=== PATIENT | female | born 1990 | race Caucasian/White ===

== ENCOUNTER 2018-04-05 17:55 | Emergency (ER) | payer OTHER, SELFPAY ==
--- NOTE | 2018-04-05 13:01 | EKG12_ITS ---
Test Reason : CP Blood Pressure : / mmHG Vent. Rate : 071 BPM Atrial Rate : 071 BPM P-R Int : 146 ms QRS Dur : 082 ms QT Int : 362 ms P-R-T Axes : 064 022 020 degrees QTc Int : 393 ms Normal sinus rhythm Normal ECG Confirmed by RENATA IBARRA MD ([id number]), editor farm journal BRIELLE MENCHACA ([id number]) on 04/10/2018 5:36:32 PM Referred By: Confirmed By:RENATA IBARRA MD
--- NOTE | 2018-04-05 17:00 | RAD_ITS ---
STUDY: X-RAY CHEST REASON FOR EXAM: Female, 27 years old. Chest pain and palpitations TECHNIQUE: PA and lateral views of the chest. COMPARISON: None. FINDINGS: The lungs are clear and expanded. There is no demonstrated pleural abnormality. Normal size heart. Normal mediastinum and marko. Normal visualized pulmonary arteries. Normal visualized aortic arch and descending thoracic aorta. Normal visualized thoracic spine. Normal visualized ribs, clavicles, and shoulders. There is no demonstrated abnormality of the visualized soft tissue structures of the upper abdomen. RAD/Chest PA and Lateral IMPRESSION: Normal x-ray examination of the chest. Electronically Signed: Jorge Perdue DO at 17:13 EDT Tel , Service support ,
--- NOTE | 2018-04-05 17:55 | DT_ITS ---
This patient was seen during an EMR downtime April 01, 2018 - April 08, 2018. This patient may have a combination of paper and electronic documentation or all paper documentation. All documentation is viewable within the e-chart portion of [facility] for each patient visit.
--- NOTE | 2018-04-05 17:55 | CT_ITS ---
STUDY: CTA CHEST REASON FOR EXAM: Female, 27 years old. Elevated d-dimer. RADIATION DOSAGE (If Supplied By Facility): CTDIvol = ( 10.05 ) mGy, DLP = ( 388.67 ) mGycm TECHNIQUE: The examination was performed with the intravenous administration of 100 ml of Isovue 370 contrast material. Post-processing of the angiographic images was performed, with multiplanar reformation and 3D reconstruction. Individualized dose optimization techniques were used for this CT. COMPARISON: None. FINDINGS: Normal enhancement of the main pulmonary artery and right and left pulmonary arteries. Normal enhancement of the bilateral peripheral pulmonary arteries. There is no demonstrated pulmonary embolism. Normal thoracic aorta and visualized great vessels. There is no demonstrated aortic dissection. Normal heart and pericardium. Normal mediastinum. Normal hilar regions. Normal visualized trachea and bronchi. The lungs are well expanded. Normal pulmonary parenchyma. Normal pleura. Normal chest wall structures. Normal osseous structures. Normal visualized upper abdomen. CT/CTA Chest W/WO Contrast IMPRESSION: Normal CTA chest examination, without a demonstrated pulmonary embolism or arterial dissection. No evidence for acute chest disease. Electronically Signed: Nash Ruff MD at 18:39 EDT , Service support ,
[2018-04-08 10:40] LABS: Hematocrit 46.2 % (37-47); Hemoglobin 15.9 g/dl (12.0-15.0); Mean Corp Hgb Conc 34.4 g/gl (32-36); Mean Corpuscular Hgb 30.3 pg (27.0-32.0); Platelet Count 293 K/mm3 (150-450); RBC Distribution Width CV 12.4 % (11.6-14.6); RBC Distribution Width SD 39.9 fl (35.1-43.9); Red Blood Count 5.25 M/mm3 (4.2-5.4); White Blood Count 10.8 K/mm3 (4.4-11.0)
[2018-04-08 10:41] LABS: Absolute Lymphocyte Count 2.03 X10^3/ul (0.83-4.51); Absolute Neutrophil Count 7.2 X10^3/uL (2.0-7.7); Basophil# 0.04 X10^3/uL; Basophil% 0.4 % (0-1); Eosinophil# 0.53 X10^3/uL; Eosinophils% 4.9 % (0-5); Lymphocyte # 2.03 X10^3/ul (4.0); Lymphocyte % 21.3 % (19-41); Mean Platelet Vol. 10.3 fl (6.2-12.0); Monocyte# 0.71 X10^3/uL; Monocyte% 6.6 % (0-10); Neutrophil # 7.22 X10^3/uL (2.7-7.7); Neutrophil % 66.6 % (47-70); POSITIVE COUNT NO; POSITIVE DIFFERENTIAL NO; POSITIVE MORPHOLOGY NO
[2018-04-08 10:42] LABS: D-Dimer Quantitative (DVT/PE) 0.52 FEU/ug/m (0.27-0.49)
[2018-04-09 03:57] LABS: BUN 9 mg/dL (7-18); Calcium,Total 9.1 mg/dL (8.5-10.1); Creatinine, Serum 0.75 mg/dL (0.55-1.02); EST Glomerular Filtration Rate 97 mL/min (>60); Est Glom Filt Rate - Afr Amer 118 mL/min (>60); Glucose 76 mg/dL (74-106)
[2018-04-09 03:58] LABS: Anion Gap 8 (5-15); Chloride 104 mmol/L (98-107); Potassium 4.4 mmol/L (3.5-5.1); Sodium Level 137 mmol/L (136-145)
== END 2018-04-05 18:55 | disposition home or self-care (01) ==
LOC: ED 04-06 12:50
PROVIDERS: Emergency Provider Emergency Medicine
DX: R07.9 Chest pain, unspecified (principal); R00.2 Palpitations; F17.200 Nicotine dependence, unspecified, uncomplicated
CPT/HCPCS: 71046; 71275; 80048; 84484; 85025; 85379; 93005; 99284; Q9967; A4216

== ENCOUNTER 2022-05-08 11:31 | Emergency (ER) | payer BC, SELFPAY ==
[2022-05-08 11:32] VITALS: BP 156/99; PULSE 97; RESP 14; TEMP 36.6; O2SAT 96; BMI 37.2
--- NOTE | 2022-05-08 12:36 | EDS_ITS ---
HPI HPI - GI History of Present Illness Chief Complaint: Abd Pain Informant: patient Abdominal Pain/Flank Pain Onset: Days (4-5) Context: Gradual Onset Timing: Continuous Quality: Aching and Burning Location: Epigastric (And across entire upper abdomen, feels discomfort in her low back nonlateralizing) Current Severity: Moderate Maximum Severity: Moderate Worsened by: Nothing Relieved by: Food Nausea/Vomiting/Emesis GI Symptom: Positive for Nausea; Negative for Vomiting Diarrhea/Melena/Hematochezia GI Symptom: Positive for Melena (Intermittent); Negative for Diarrhea or Hematochezia Associated Symptoms Associated Symptoms: Negative for Dysuria, Frequency, Hematuria or Urgency Narrative Narrative: Patient states she has a longstanding history of acid reflux, and she gets this upper abdominal discomfort from time to time with it, and she is on omeprazole for all of this. She had a scope maybe 10 years ago or more and does not remember what it showed, nothing since. She does not follow with gastroenterology for any reason. In the past several days without any obvious etiology, the same discomfort, she thinks, has been more intense and more persistent. She states most of the time she had it for several days and it goes away on its own. [facility] Medical History Former smoker GERD (gastroesophageal reflux disease) Hypertension SVT (supraventricular tachycardia) Home Medications hydrochlorothiazide 12.5 mg capsule 1 cap PO DAILY 05/08/22 [History Last Taken Unknown] omeprazole 40 mg capsule,delayed release 40 mg PO BID #30 caps 05/08/22 [Rx Last Taken Unknown] sucralfate 1 gram tablet 1 g PO .qid #40 tabs 05/08/22 [Rx Last Taken Unknown] Allergy/AdvReac Type Severity Reaction Status Date / Time amoxicillin [Amoxicillin] Allergy Rash Verified 05/08/22 11:34 Surgical History History of History of tonsillectomy and adenoidectomy History of umbilical hernia repair Social History Smoking Status: Former smoker ROS ROS ED Constitutional Constitutional ED: Denies chills or fever(s) Eyes Eyes: Denies change in vision or diplopia ENT ENT ED: Denies rhinorrhea or sore throat Cardiovascular Cardiovascular: Denies chest pain or palpitations Respiratory/Chest Respiratory/Chest: Denies cough or dyspnea Gastrointestinal Gastrointestinal: Reports abdominal pain, melena and nausea; Denies diarrhea, hematochezia or vomiting Genitourinary Genitourinary ED: Denies dysuria or hematuria Musculoskeletal Musculoskeletal: Reports back pain; Denies neck pain Integumentary Denies abscess or rash Neurologic Neurologic: Denies headache(s), paresthesias or weakness Psychiatric Psychiatric: Denies anxiety or suicidal thoughts EXAM Physical Exam Const Vital Signs: 05/08/22 11:32 05/08/22 13:23 05/08/22 15:17 Temperature 97.8 F Temperature Source Temporal Pulse Rate 97 76 67 Respiratory Rate 14 15 15 Blood Pressure 156/99 H 147/84 H 126/81 H Blood Pressure Mean 118 105 96 Pulse Ox 96 98 Oxygen Delivery Method Room Air Room Air Room Air Positive well nourished and well developed General Appearance ED: well developed and NAD HEENT Reports moist mucous membranes normocephalic and atraumatic Eyes PERRL and EOMs intact bilaterally Neck full ROM and supple Resp normal respiratory effort and clear to auscultation bilaterally Cardio regular rate, regular rhythm and no murmurs GI non-distended GI Narrative: Tender across upper abdomen nonlateralizing. Negative Valencia's. Lower abdomen benign. No guarding or rebound tenderness. Auscultation: normoactive bowel sounds Palpation: soft Back/Spine no CVA tenderness General Back: other FROM Extremity normal to inspection General Extremety ED: Negative for edema, pulses abnormal or tenderness General Extremity: Negative for edema or pulses abnormal Neuro oriented x3, CN's II-XII intact bilaterally and no sensory deficits noted Sensorium / Orientation: awake and alert Motor Exam: strength 5/5 throughout Skin no rashes or lesions noted and no wounds MDM MDM MDM Narrative Medical decision making narrative: After GI cocktail, patient had complete resolution of her discomfort, although later it started to gradually return. She is comfortable and stable. Her work- up is negative here. She is not anemic, I do not think we need to do a Hemoccult right now, it is certainly possible she is having some occasional upper GI bleeding, in this case her symptoms are more consistent with a duodenal ulcer. I am going to prescribe her sucralfate and have her double her PPI for at least the next 5 days, and follow-up with GI she was given their information and she is comfortable with that plan. Lab Data Attestation: I reviewed the patient's lab results. Labs: Laboratory Results - last 24 hr 05/08/22 05/08/22 05/08/22 12:46 12:46 12:46 WBC 9.9 RBC 5.14 Hgb 14.4 Hct 43.3 MCV 84.2 MCH 28.0 MCHC 33.3 RDW Std Deviation 37.2 RDW Coeff of Jackie 12.2 Plt Count 310 MPV 9.5 Immature Gran % (Auto) 0.500 Neut % (Auto) 67.8 Lymph % (Auto) 22.9 [place] % (Auto) 5.9 Eos % (Auto) 2.4 Baso % (Auto) 0.5 Absolute Neuts (auto) 6.7 Absolute Lymphs (auto) 2.26 Nucleated RBC % 0 Sodium 137 Potassium 3.8 Chloride 102 Carbon Dioxide 29.0 Anion Gap 6 BUN 9 Creatinine 0.84 Estim Creat Clear Calc 78.80 Est GFR (MDRD) Af Amer 100 Est GFR (MDRD) Non-Af 83 BUN/Creatinine Ratio 10.8 Glucose 100 Calcium 9.4 Total Bilirubin 0.50 AST 18 ALT 32 Alkaline Phosphatase 87 Total Protein 7.5 Albumin 3.7 Globulin 3.8 Albumin/Globulin Ratio 1.0 Lipase 100 Serum , Qual NEGATIVE Discharge Plan Triage Chief Complaint: Abd Pain ED Provider: Lee Owusu Dx/Rx/DC Orders Clinical Impression: Acute upper abdominal pain, Chronic GERD Instructions: ED PEPTIC ULCER vs GASTRITIS Prescriptions: New sucralfate 1 gram tablet 1 g PO .qid Qty: 40 0RF Continued hydrochlorothiazide 12.5 mg capsule 1 cap PO DAILY Changed omeprazole 40 mg capsule,delayed release(DR/EC) 40 mg PO BID Qty: 30 0RF Rx Instructions: for next 5 days Primary Care Provider: Care Physician,No Primary Referrals: Salvador Arriaga, [STAFF PHYSICIAN] - Care Physician,No Primary [Primary Care Provider] - Disposition Disposition: Home, Self Care
[2022-05-08 12:55] LABS: Absolute Lymphocyte Count 2.26 X10^3/uL (0.83-4.51); Absolute Neutrophil Count 6.7 X10^3/uL (2.0-7.7); Basophil# 0.05 X10^3/uL; Basophil% 0.5 % (0-1); Eosinophil# 0.24 X10^3/uL; Eosinophils% 2.4 % (0-5); Hematocrit 43.3 % (37-47); Hemoglobin 14.4 g/dL (12.0-15.0); Lymphocyte # 2.26 X10^3/ul (0.83-4.51); Lymphocyte % 22.9 % (19-41); Mean Corp Hgb Conc 33.3 g/dL (32-36); Mean Corpuscular Volume 84.2 fL (81-99); Mean Platelet Vol. 9.5 fl (6.2-12.0); Monocyte# 0.58 X10^3/uL; Monocyte% 5.9 % (0-10); NRBC Flagged by Analyzer 0 % (0-5); Neutrophil % 67.8 % (47-70); Platelet Count 310 K/mm3 (150-450); RBC Distribution Width CV 12.2 % (11.6-14.6); RBC Distribution Width SD 37.2 fl (35.1-43.9); Red Blood Count 5.14 M/mm3 (4.2-5.4); White Blood Count 9.9 K/mm3 (4.4-11.0)
[2022-05-08 13:04] LABS: Internal QC Validated? YES +Cl - CLEAR BKGD; Pregnancy, Serum, hCG Quali. NEGATIVE Negative
[2022-05-08 13:12] LABS: AST(SGOT) 18 U/L (15-37); Alanine Aminotransfer ALT/SGPT 32 U/L (13-56); Albumin, Serum 3.7 g/dL (3.2-5.0); Alkaline Phosphatase 87 U/L (45-117); Anion Gap 6 (5-15); BUN 9 mg/dL (7-18); BUN/Creat Ratio 10.8 RATIO (10-20); Calcium,Total 9.4 mg/dL (8.5-10.1); Chloride 102 mmol/L (98-107); Creatinine, Serum 0.84 mg/dL (0.55-1.02); EST Glomerular Filtration Rate 83 mL/min (>60); Est Glom Filt Rate - Afr Amer 100 mL/min (>60); Globulin 3.8 g/dL (2.2-4.2); Glucose 100 mg/dL (74-106); Lipase 100 U/L (73-393); Potassium 3.8 mmol/L (3.5-5.1); Protein, Total 7.5 g/dL (6.4-8.2); Sodium Level 137 mmol/L (136-145)
[2022-05-08] MEDS: Mag Hydrox/Al Hydrox/Simeth 30 ML UDC PO (13:15)
[2022-05-08] MEDS: Dicyclomine 10 MG Capsule 20 MG PO (13:15)
[2022-05-08 13:23] VITALS: BP 147/84; PULSE 76; RESP 15
--- NOTE | 2022-05-08 13:38 | CM.ED ---
Social Work Note Reason for Referral: No PCP SW reviewed chart and No PCP listed for pt. SW in to speak with pt. Pt has guest present in room. Pt gave permission for this worker to speak to her in front of her guest. Pt states that she does have a PCP and states it is Dr. Hackett. Gema Vazquez SUBSTANCE ABUSE RN, ORDERLY
[2022-05-08 15:17] VITALS: BP 126/81; PULSE 67; RESP 15; O2SAT 98
== END 2022-05-08 15:42 | disposition home or self-care (01) ==
PROVIDERS: Emergency Provider Emergency Medicine; Visit Provider Emergency Medicine
DX: K21.9 Gastro-esophageal reflux disease without esophagitis (principal); I10 Essential (primary) hypertension; Z87.891 Personal history of nicotine dependence; Z79.899 Other long term (current) drug therapy
CPT/HCPCS: 80053; 83690; 84703; 85025; 99284

== ENCOUNTER 2022-08-31 06:41 | Day surgery (SDC) | payer BC, SELFPAY ==
[2022-08-31] VITALS (7 sets, daily range): BP systolic 119–127; BP diastolic 80–90; PULSE 62–86; RESP 16; TEMP 36.4; O2SAT 92–97; BMI 39.4
[2022-08-31] MEDS: Lactated Ringers 1,000 ML 15 ML IV (06:55)
[2022-08-31 07:09] LABS: Internal QC Validated? YES +Cl - CLEAR BKGD; Pregnancy, Urine Negative Negative
--- NOTE | 2022-08-31 07:45 | EGD_PTH ---
PATIENT: DARSHAN WOLF LOC: EN U#:[id number] AGE/SX: 32/F ROOM: RE08/31/[address]: Dr. Salvador Arriaga DO : 1990 BED: DIS: 08/31/2022 SPEC #: [id number] RECD: 08/31/22 10:08 STATUS: ROSALBA CAMARGO #: [id number] OLVIN: 08/31/22 07:[address]: Salvador Arriaga DEPT: SURGICAL PATHOLOGY RECD BY: Henny Guillory ENTERED: 08/31/22 11:03 SP TYPE: EGD BIOPSY OT DR: Artur Hackett MD Tissues: Esophagus, NOS Procedures: Special Stain Group I Surgery Specimen Level IV GMS Stain (control) HEADER OPERATION: EGD (MAC) with biopsies and dilation PRE-OP DIAGNOSIS: GERD, dysphagia TISSUE SUBMITTED: Random esophagus biopsy MICROSCOPIC DIAGNOSIS Esophagus, random biopsy: Fragments of benign squamous mucosa. No evidence of inflammation. AM:julienne 09/01/2022 MICROSCOPIC DESCRIPTION Slides are reviewed. GROSS DESCRIPTION Received in fixative is one container labeled with the patient's name and designated random esophagus. The specimen consists of multiple irregular fragments of light quintanilla soft tissue that in aggregate measure 2 x 1.5 x 0.1 cm. The specimen is totally submitted in one cassette. / AM:julienne 08/31/2022 TC:2 CPT: 03733
--- NOTE | 2022-08-31 07:55 | HP.PCM_ITS ---
History and Physical Date of Admission: 08/31/22 32 F who presents to the office today for f/u ED visit for upper abdominal pain. She was referred to ED from urgent care. She was treated with a GI cocktail, pain improved, hgb 14.4, was prescribed sucralfate and instructed to increase omeprazole 40 mg to BID dosing for 5 days. Less pain since ED, sucralfate helped. She didn't increase dose of omeprazole. Long hx of heartburn, remote hx of EGD, thinks she had esophagram years ago too. Most bothered by acid refluxing up to throat, and difficulty swallowing bread and meat which is relatively new. No nausea or vomiting. Alternates between constipation and diarrhea, less often constipation, tried treating with OTC but felt worse. No melena or hematochezia. 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 ROS Const Constitutional: Positive for fatigue and weight change; No fever(s), frequent falls or headache(s) ENT ENT: Positive for difficulty swallowing; No headache(s) Cardio Cardiology: No leg pain with exertion Gastro GI: Positive for bloating, change in bowel habits, constipation, diarrhea, heartburn and difficulty swallowing; No abdominal pain, Vomiting blood/hematemesis, Blood in stool, nausea/dyspepsia or vomiting Musc Musculoskeletal: No abnormal gait, joint pain, back pain, joint swelling, muscle cramps, muscle weakness, numbness, stiffness, tingling, Arthritis, sciatica, leg pain at night or leg pain with exertion Skin Skin: No dry skin, lesions, itchy eyes or rash Neuro Neurology: No abnormal gait, dizziness, frequent falls, headache(s), numbness, tingling, tremor(s), Increased tone in limbs, paralysis or seizures Psych Psychiatric: Positive for anxiety, No depression, No paranoia, No Behavioral Problems, No Compulsive Behavior, No hyperactivity, No inattentiveness, No obsessions/compulsions, Positive for Temper Tantrums and No suicidal ideation Endo Endocrine: Positive for fatigue and weight change Aller/Imm Allergy/Immunologic: No itchy eyes Melo/Lymp Hematologic/Lymphatic: No easy bleeding or easy bruising Exam Const General: cooperative, comfortable and no acute distress Nutritional Appearance: obese Orientation: alert, awake and oriented x3 HENMT Head: normal to inspection Eyes General: appearance normal, both eyes and all related structures Resp Effort & Inspection: normal respiratory effort GI Inspection: normal to inspection Palpation: soft, no masses and nontender Skin General: no jaundice Neuro Speech: speech normal Gait: normal gait Quality Reporting Tobacco Screening ([facility] 138) Smoking Status: Former smoker Assessment and Plan Assessment and Plan (1) GERD (gastroesophageal reflux disease): ?Status:?Acute ?Plan: 32 yr old female with GERD, dysphagia, recent upper abd pain better with sucralfate. DDx includes esophagitis, esophageal stricture, Carter's peptic ulcer disease. She will be scheduled for EGD. Rx for omeprazole 40 mg she will try increasing to BID dosing. f/u 2 wks after EGD. (2) Dysphagia: ?Status:?Acute ?Plan: as above ? ? ? Medications: Changed From omeprazole ?? for next 5 days 40 mg? PO BID 30 caps 0RF ? ? To omeprazole 40 mg? PO BID 180 caps 0RF ? ? I have examined the patient and the H&P has been reviewed. There are no clinical changes since date of exam.
--- NOTE | 2022-08-31 08:17 | OP.EGD_ITS ---
Patient Name: Kiersten Vinson Procedure Date: 08/31/2022 7:54 AM Date of : 1990 Age: 32 Procedure: Upper GI endoscopy Indications: Dysphagia Providers: Salvador Arriaga DO Medicines: Monitored Anesthesia Care Patient Profile: This is a 32 year old female. Refer to note in patient chart for documentation of history and physical. Patient has symptoms of chronic dysphagia and dysphagia with solids. Complications: No immediate complications. Procedure: Pre-Anesthesia Assessment: - Prior to the procedure, a History and Physical was performed, and patient medications and allergies were reviewed. The risks and benefits of the procedure and the sedation options and risks were discussed with the patient. All questions were answered and informed consent was obtained. Patient identification and proposed procedure were verified by the physician in the pre-procedure area. Mental Status Examination: alert and oriented. Airway Examination: normal oropharyngeal airway and neck mobility. Respiratory Examination: clear to auscultation. CV Examination: normal. Prophylactic Antibiotics: The patient does not require prophylactic antibiotics. Prior Anticoagulants: The patient has taken no previous anticoagulant or antiplatelet agents. After reviewing the risks and benefits, the patient was deemed in satisfactory condition to undergo the procedure. The anesthesia plan was to use monitored anesthesia care (MAC). Immediately prior to administration of medications, the patient was re-assessed for adequacy to receive sedatives. The heart rate, respiratory rate, oxygen saturations, blood pressure, adequacy of pulmonary ventilation, and response to care were monitored throughout the procedure. The physical status of the patient was re-assessed after the procedure. After obtaining informed consent, the endoscope was passed under direct vision. Throughout the procedure, the patient's blood pressure, pulse, and oxygen saturations were monitored continuously. The gastroscope was introduced through the mouth, and advanced to the second part of duodenum. The upper GI endoscopy was accomplished without difficulty. The patient tolerated the procedure well. Scope In: 8:05:50 AM Scope Out: 8:12:15 AM Total Procedure Duration Time 0 hours 6 minutes 25 seconds Findings: Mucosal changes including ringed esophagus were found in the lower third of the esophagus. Biopsies were obtained from the proximal and distal esophagus with cold forceps for histology of suspected eosinophilic esophagitis. Verification of patient identification for the specimen was done. Estimated blood loss was minimal. A moderate Schatzki ring was found in the lower third of the esophagus. A guidewire was placed and the scope was withdrawn. Dilation was performed with a Savary dilator with no resistance at 60 Fr. The dilation site was examined following endoscope reinsertion and showed complete resolution of luminal narrowing. Estimated blood loss was minimal. The entire examined stomach was normal. A small hiatal hernia was present. The second portion of the duodenum was normal. Biopsies were taken with a cold forceps for histology. Verification of patient identification for the specimen was done. Estimated blood loss was minimal. Impression: - Esophageal mucosal changes consistent with eosinophilic esophagitis. Biopsied. - Moderate Schatzki ring. Dilated. - Normal stomach. - Small hiatal hernia. - Normal second portion of the duodenum. Biopsied. Recommendation: - Discharge patient to home. - Resume previous diet. - Continue present medications. Procedure Code(s): --- Professional --- 42659, Esophagogastroduodenoscopy, flexible, transoral; with insertion of guide wire followed by passage of dilator(s) through esophagus over guide wire 79206, 59,51, Esophagogastroduodenoscopy, flexible, transoral; with biopsy, single or multiple CPT copyright 2017 [employer] [place] [employer]. All rights reserved. The codes documented in this report are preliminary and upon orthopedic coder review may be revised to meet current compliance requirements. Salvador Arriaga DO 08/31/2022 8:17:11 AM This report has been signed electronically. Number of Addenda: 0 Note Initiated On: 08/31/2022 7:54 AM
--- NOTE | 2022-08-31 08:17 | OP.CCLET_ITS ---
08/31/2022 Artur Hackett Md Re : Upper GI endoscopy procedure for Kiersten Vinson Dear [place] This procedure was performed on August. My impressions and recommendations are as follows: Impressions : - Esophageal mucosal changes consistent with eosinophilic esophagitis. Biopsied. - Moderate Schatzki ring. Dilated. - Normal stomach. - Small hiatal hernia. - Normal second portion of the duodenum. Biopsied. Recommendations : - Discharge patient to home. - Resume previous diet. - Continue present medications. My findings are described in the full procedure note, which is enclosed. If I can be of further assistance, please feel free to contact me at . Sincerely, Salvador Arriaga, 08/31/2022 8:17:11 AM This report has been signed electronically.
== END 2022-08-31 09:19 | disposition home or self-care (01) ==
LOC: EN 06:42 → AC 06:43
PROVIDERS: Anesthesiology; PCP Family Medicine; Referring Provider Family Medicine; Visit Provider Internal Medicine Gastroenterology
PROC: 0DJ08ZZ Inspection of Upper Intestinal Tract, Via Natural or Artificial Opening Endoscopic (ICD-10-PCS; CPT 43235; principal; 2022-08-31 07:40)
DX: K22.2 Esophageal obstruction (principal); R13.10 Dysphagia, unspecified; K44.9 Diaphragmatic hernia without obstruction or gangrene; K21.9 Gastro-esophageal reflux disease without esophagitis; I10 Essential (primary) hypertension; Z87.891 Personal history of nicotine dependence; Z79.899 Other long term (current) drug therapy
CPT/HCPCS: 43239; 43248; 81025; 88305; 88312; J7120; C1769; J2405

== ENCOUNTER 2023-01-02 00:49 | Emergency (ER) | payer BC, SELFPAY ==
[2023-01-02 00:50] VITALS: BP 141/89; PULSE 77; RESP 18; TEMP 36.8; O2SAT 99; BMI 41.1
--- NOTE | 2023-01-02 01:25 | EKG12_ITS ---
Test Reason : DYSRHYTHMIA Blood Pressure : / mmHG Vent. Rate : 071 BPM Atrial Rate : 071 BPM P-R Int : 154 ms QRS Dur : 094 ms QT Int : 366 ms P-R-T Axes : 016 004 008 degrees QTc Int : 397 ms Normal sinus rhythm Normal ECG Confirmed by TRAVIS RODRÍGUEZ, YANN ([id number]), legal editor GLADYS CARMONA ([id number]) on 01/03/2023 10:25:08 AM Referred By: ALEXANDRA Confirmed By:YANN ROBLES MD
--- NOTE | 2023-01-02 01:25 | RAD_ITS ---
EXAM: XR CHEST, 1 VIEW CLINICAL INDICATION: dyspnea dyspnea TECHNIQUE: Frontal view of the chest. This report was created using [employer]. report generation technology. COMPARISON: 04/05/2018. FINDINGS: LUNGS AND PLEURAL SPACES: Unremarkable. No consolidation or edema. No pneumothorax. No effusion. HEART: Unremarkable. Cardiac silhouette not enlarged. MEDIASTINUM: Central airways and mediastinal contour are unremarkable. BONES/JOINTS: Unremarkable. SOFT TISSUES: Unremarkable. RAD/Chest 1 View (Portable) IMPRESSION: No radiographic evidence of acute cardiopulmonary disease. Electronically Signed: Prabhu Carey MD at 2:21 EST Reading Location ID and State: [facility] / [place] , Service support ,
--- NOTE | 2023-01-02 01:26 | EX.ED.DYSGE1 ---
HPI History of Present Illness Chief Complaint: Palpitations Informant: patient Narrative Narrative: Patient woke up this morning gasping for air and pounding heart. This patient has a history of SVT. She had an ablation in May in [facility]. She has not had any known episodes since. This did not feel like her SVT. She then had a Holter monitor afterwards that showed some occasional tachycardic episodes but it sounds like they were sinus tachycardia from what she is describing. Her forestry aide had said they do not have to treat these but if they bother her they can try. Therefore, about 2 weeks ago they started her on metoprolol. When she started taking metoprolol she got episodes like she got last night. She would wake up gasping for air after falling asleep. They switch metoprolol to propanolol at 10 mg once a day. This seemed to do well for her. It was recently switched to twice a day because the patient still felt she had some symptoms during the day. Since switching to twice a day she is getting similar response. She actually feels pretty good now. But ever since starting meds she states that she seems to get winded more easily. She is not having pain now. She has no history of travel surgery immobilization or personal history of DVT or PE. She is adopted so she does not know family history. She is also had a lot of postnasal drip recently. She was recently on an antibiotic for this. But she has not been having fevers. She saw her physician sounds like earlier today and they switched her to a new medicine but she has not started. She is not really coughing with this. She is not having fevers or chills. Patient also admits that ever since she had SVT and ablation she gets very anxious because she is concerned about her heart rhythms. This is very understandable. Overall she is feeling much better at this time. [facility] Medical History Anxiety Cardiology follow-up encounter Former smoker GERD (gastroesophageal reflux disease) History of echocardiogram History of edema History of stress test Hypertension Migraine headache SVT (supraventricular tachycardia) Thyroid nodule Vitamin D deficiency Wears glasses Home Medications cetirizine 10 mg capsule (Zyrtec) 10 mg PO DAILY PRN Allergy Symptoms 06/27/22 [History Last Taken Unknown] omeprazole 40 mg capsule,delayed release 40 mg PO BID #180 caps 06/27/22 [Rx Last Taken Unknown] cholecalciferol (vitamin D3) 125 mcg (5,000 unit) tablet (Vitamin D3) 125 mcg PO DAILY 08/29/22 [History Last Taken Unknown] propranolol 10 mg tablet 10 mg PO BID 01/02/23 [History Last Taken Unknown] Allergy/AdvReac Type Severity Reaction Status Date / Time amoxicillin [Amoxicillin] Allergy Rash Verified 01/02/23 00:52 diltiazem [From Cardizem] AdvReac Shortness Verified 01/02/23 00:52 of breath Family History unable to obtain unable to obtain Surgical History H/O cardiac radiofrequency ablation History of History of tonsillectomy and adenoidectomy History of umbilical hernia repair Social History Smoking Status: Former smoker alcohol intake: current substance use type: does not use what type of physical activity do you participate in: walking and other ROS ROS ED Constitutional Constitutional ED: Denies chills, fever(s), subjective or sweats Eyes Eyes: Denies change in vision ENT ENT ED: Reports rhinorrhea and other Details: Postnasal drip ; Denies ear pain or sore throat Cardiovascular Cardiovascular: Reports palpitations; Denies chest pain Respiratory/Chest Respiratory/Chest: Reports dyspnea; Denies sputum Gastrointestinal Gastrointestinal: Denies nausea or vomiting Musculoskeletal Musculoskeletal: Denies myalgias Integumentary Denies rash Neurologic Neurologic: Denies headache(s) or paresthesias Psychiatric Psychiatric: Reports anxiety Endocrine Endocrinology: Denies polydipsia or polyuria Hematologic/Lymphatic Hematologic/Lymphatic: Denies easy bleeding or easy bruising Allergic/Immunologic Allergic/Immunologic ED: Denies urticaria EXAM Physical Exam Narrative Exam Narrative: Patient awake alert sitting in bed looks comfortable. In no acute distress nontoxic. HEENT shows relatively clear nasal passages no sign of facial tenderness or swelling. Voice is normal. Neck shows no JVD no stridor. Lungs are clear bilaterally. Breathing is easy unlabored and there is no pain with a deep breath. O2 saturation is 99% on room air showing no hypoxia. Heart is regular with a rate about 75. No ectopy on the monitor while I am in the room. Peripheral pulses are normal x4 Abdomen is soft nontender. shows no CVA or suprapubic tenderness Extremities show no edema cords asymmetry or distended veins. Const Vital Signs: 01/02/23 00:50 Temperature 98.2 F Temperature Source Oral Pulse Rate 77 Respiratory Rate 18 Blood Pressure 141/89 H Blood Pressure Mean 106 Pulse Ox 99 Oxygen Delivery Method Room Air MDM MDM MDM Narrative Medical decision making narrative: My independent interpretation of her single view chest x-ray shows minimal increased markings toward the right base. This could be some mild atelectasis. This does not appear to be pneumonia. But even if it is, she is just starting an antibiotic from her primary physician. I am pending final read by radiology. Patient's labs show minimal elevation of the white count. This may be due to her recent illness but is a nonspecific finding. Platelets and hemoglobin are normal. No sign of anemia. Electrolytes all look normal but she does have some mild dehydration. This should self correct with diet. Glucose is minimally up at 130 and this can be followed up and does not need acute treatment. Went to check the patient again. Her heart rate is still in the low 70s. She is asymptomatic. She had similar symptoms on metoprolol. She was going on propanolol until they increase the dose. I recommend she contact her forestry aide in the morning for further dosing opinions. All questions were answered I think the symptoms may be a bit of a side effect from beta-blockers which can certainly cause some of her symptoms. But she may also have a component of sleep apnea. I think she needs to follow-up to have both of these evaluated. It is reasonable to do a sleep study but I think we have to wait until her nasal drainage is better. Lab Data Attestation: I reviewed the patient's lab results. Labs: Laboratory Results - last 24 hr 01/02/23 01/02/23 01:34 01:34 WBC 14.5 H RBC 5.09 Hgb 14.1 Hct 42.1 MCV 82.7 MCH 27.7 MCHC 33.5 RDW Std Deviation 38.3 RDW Coeff of Jackie 12.7 Plt Count 343 MPV 9.9 Immature Gran % (Auto) 0.400 Neut % (Auto) 64.0 Lymph % (Auto) 24.7 Hickman % (Auto) 7.4 Eos % (Auto) 3.1 Baso % (Auto) 0.4 Absolute Neuts (auto) 9.2 H Absolute Lymphs (auto) 3.57 Nucleated RBC % 0 Sodium 136 Potassium 3.9 Chloride 104 Carbon Dioxide 25.0 Anion Gap 7 BUN 14 Creatinine 1.17 H Estim Creat Clear Calc 56.05 Est GFR (MDRD) Af Amer 68 Est GFR (MDRD) Non-Af 56 L BUN/Creatinine Ratio 12.0 Glucose 130 H Calcium 9.3 Troponin I High Sens 9 EKG Initial EKG: Comments: My independent interpretation of her EKG done for palpitations and dyspnea showing normal sinus rhythm with overall rate of 71. No ventricular ectopy. No supraventricular ectopy. KS interval, QRS duration and QTc are all normal. Discharge Plan Triage Chief Complaint: Palpitations ED Provider: Rory Webb Dx/Rx/DC Orders Clinical Impression: Heart palpitations, Dyspnea, paroxysmal nocturnal, Hx of supraventricular tachycardia Instructions: ED Palpitations, ED Sleep Apnea, Obstructive Prescriptions: No Action Zyrtec 10 mg capsule 10 mg PO DAILY PRN (Reason: Allergy Symptoms) omeprazole 40 mg capsule,delayed release(DR/EC) 40 mg PO BID Qty: 180 0RF cholecalciferol (vitamin D3) [Vitamin D3] 125 mcg (5,000 unit) Tablet 125 mcg PO DAILY propranolol 10 mg tablet 10 mg PO BID Primary Care Provider: Artur Hackett Referrals: Artur Hackett MD [Primary Care Provider] - 3-5 Days Activity Restrictions/Additional Instructions: Contact your forestry aide tomorrow to discuss dosing options of your propanolol Disposition Disposition: Home, Self Care
[2023-01-02 01:40] LABS: Absolute Lymphocyte Count 3.57 X10^3/uL (0.83-4.51); Absolute Neutrophil Count 9.2 X10^3/uL (2.0-7.7); Basophil# 0.06 X10^3/uL; Basophil% 0.4 % (0-1); Eosinophil# 0.45 X10^3/uL; Eosinophils% 3.1 % (0-5); Hematocrit 42.1 % (37-47); Hemoglobin 14.1 g/dL (12.0-15.0); Lymphocyte # 3.57 X10^3/ul (0.83-4.51); Lymphocyte % 24.7 % (19-41); Mean Corp Hgb Conc 33.5 g/dL (32-36); Mean Corpuscular Hgb 27.7 pg (27.0-32.0); Mean Corpuscular Volume 82.7 fL (81-99); Mean Platelet Vol. 9.9 fl (6.2-12.0); Monocyte# 1.07 X10^3/uL; Monocyte% 7.4 % (0-10); NRBC Flagged by Analyzer 0 % (0-5); Neutrophil # 9.24 X10^3/uL (2.7-7.7); Platelet Count 343 K/mm3 (150-450); RBC Distribution Width CV 12.7 % (11.6-14.6); RBC Distribution Width SD 38.3 fl (35.1-43.9); Red Blood Count 5.09 M/mm3 (4.2-5.4); White Blood Count 14.5 K/mm3 (4.4-11.0)
[2023-01-02 01:58] LABS: Anion Gap 7 (5-15); BUN 14 mg/dL (7-18); Calcium,Total 9.3 mg/dL (8.5-10.1); Chloride 104 mmol/L (98-107); Creatinine, Serum 1.17 mg/dL (0.55-1.02); EST Glomerular Filtration Rate 56 mL/min (>60); Est Glom Filt Rate - Afr Amer 68 mL/min (>60); Estimated Creatinine Clearance 56.05 ml/min; Glucose 130 mg/dL (74-106); Potassium 3.9 mmol/L (3.5-5.1); Sodium Level 136 mmol/L (136-145); Troponin-I HS 9 pg/mL (3.0-54.0)
[2023-01-02 02:27] VITALS: BP 113/72; PULSE 77; RESP 20
== END 2023-01-02 02:36 | disposition home or self-care (01) ==
PROVIDERS: Emergency Provider Emergency Medicine; PCP Family Medicine; Visit Provider Emergency Medicine
DX: R00.2 Palpitations (principal); E86.0 Dehydration; I10 Essential (primary) hypertension; F41.9 Anxiety disorder, unspecified; R06.00 Dyspnea, unspecified; Z87.891 Personal history of nicotine dependence; Z86.79 Personal history of other diseases of the circulatory system
CPT/HCPCS: 71045; 80048; 84484; 85025; 93005; 99284; A4216

== ENCOUNTER 2023-01-03 04:16 | Emergency (ER) | payer BC, SELFPAY ==
[2023-01-03 04:16] VITALS: BP 143/82; PULSE 65; RESP 16; TEMP 35.9; O2SAT 100; BMI 39.8
[2023-01-03 04:21] VITALS: O2SAT 100
[2023-01-03] MEDS: LORazepam 1 MG Tablet 2 MG PO (06:01)
--- NOTE | 2023-01-03 06:06 | EX.ED.DYSGE1 ---
HPI History of Present Illness Chief Complaint: Anxiety Narrative Narrative: Patient is a 32-year-old female with past medical history of paroxysmal supraventricular tachycardia that she underwent an ablation for about 8 months ago. She states that ever since she has had SVT she has experienced bouts of anxiety. She states that she has not sought treatment for this but feels like over the past few weeks her symptoms have spiked. She denies any homicidal or suicidal ideation and she denies any excessive stimulants or illicit drugs that could have exacerbated the matter. She states she is having difficulty sleeping secondary to the anxiety and therefore presents for evaluation [facility] Medical History Anxiety Cardiology follow-up encounter Former smoker GERD (gastroesophageal reflux disease) History of echocardiogram History of edema History of stress test Hypertension Migraine headache SVT (supraventricular tachycardia) Thyroid nodule Vitamin D deficiency Wears glasses Home Medications cetirizine 10 mg capsule (Zyrtec) 10 mg PO DAILY PRN Allergy Symptoms 06/27/22 [History Last Taken Unknown] omeprazole 40 mg capsule,delayed release 40 mg PO BID #180 caps 06/27/22 [Rx Last Taken Unknown] cholecalciferol (vitamin D3) 125 mcg (5,000 unit) tablet (Vitamin D3) 125 mcg PO DAILY 08/29/22 [History Last Taken Unknown] propranolol 10 mg tablet 10 mg PO BID 01/02/23 [History Last Taken Unknown] escitalopram oxalate 10 mg tablet (Lexapro) 10 mg PO DAILY 30 days #30 tabs 01/03/23 [Rx Last Taken Unknown] Allergy/AdvReac Type Severity Reaction Status Date / Time amoxicillin [Amoxicillin] Allergy Rash Verified 01/03/23 04:19 diltiazem [From Cardizem] AdvReac Shortness Verified 01/03/23 04:19 of breath Surgical History H/O cardiac radiofrequency ablation History of History of tonsillectomy and adenoidectomy History of umbilical hernia repair Social History Smoking Status: Former smoker alcohol intake: current substance use type: does not use what type of physical activity do you participate in: walking and other ROS ROS ED Constitutional Constitutional ED: Denies chills or fever(s) ENT ENT ED: Denies sore throat Cardiovascular Cardiovascular: Reports palpitations and racing heartbeat; Denies chest pain Respiratory/Chest Respiratory/Chest: Denies cough or dyspnea Gastrointestinal Gastrointestinal: Denies abdominal pain, diarrhea, nausea or vomiting Genitourinary Genitourinary ED: Denies dysuria Musculoskeletal Musculoskeletal: Denies myalgias Integumentary Denies rash Neurologic Neurologic: Denies headache(s) Psychiatric Psychiatric: Reports anxiety; Denies suicidal ideation or suicidal thoughts Hematologic/Lymphatic Hematologic/Lymphatic: Denies easy bleeding or easy bruising EXAM Physical Exam Const Vital Signs: 01/03/23 04:16 01/03/23 04:21 01/03/23 06:14 Temperature 96.6 F L Temperature Source Temporal Pulse Rate 65 84 Respiratory Rate 16 16 Respiratory Effort Normal Non-Labored Respiratory Depth Normal Respiratory Pattern Normal Blood Pressure 143/82 H Blood Pressure Mean 102 Pulse Ox 100 99 Oxygen Delivery Method Room Air Room Air Positive well nourished and well developed General Appearance ED: well developed HEENT Reports moist mucous membranes Eyes PERRL and EOMs intact bilaterally General Eye ED: Negative for pale conjunctiva Neck supple Neck Narrative: No nodule or goiter noted along the thyroid Resp normal respiratory effort and clear to auscultation bilaterally Cardio regular rate and regular rhythm Rate: other Other Details: Radial pulses are plus 2 out of 4 bilaterally are equal and symmetric Extremity normal to inspection Extremity Narrative: No asymmetric edema no pitting edema negative Homans' sign bilaterally Neuro oriented x3 and CN's II-XII intact bilaterally Sensorium / Orientation: alert Psych Psych Narrative: Patient has a nervous/anxious affect without homicidal or suicidal ideation Skin no rashes or lesions noted MDM MDM MDM Narrative Medical decision making narrative: Patient presented to the ER with stable vitals and report longstanding anxiety that has not been treated. She does not have homicidal or suicidal ideation and she does not show any changes that would suggest she is unable to care for herself and therefore there is no need for psychiatric work-up. She does have a history of paroxysmal SVT but at this time her heart is regular rate and rhythm and this goes against SVT so do not feel need for EKG or blood work. At this time patient will need acute treatment for her anxiety so she be given Ativan in the ER. However in order to help control this on an outpatient basis she will get started on Lexapro. As there is no report of homicidal or suicidal ideation and patient does not require an inpatient treatment there is no need for further work-up and patient can be discharged home with outpatient follow-up History & Record Review Discussion w/independent historian: Patient Discharge Plan Triage Chief Complaint: Anxiety ED Provider: Cuauhtemoc Powell Dx/Rx/DC Orders Clinical Impression: Anxiety, Hx of supraventricular tachycardia Instructions: Anxiety Disorders Tx, Anxiety Disorders Medicine Prescriptions: New escitalopram oxalate [Lexapro] 10 mg tablet 10 mg PO DAILY 30 Days Qty: 30 2RF Rx Instructions: After 7 days you may increase to 20 mg / 2 pills by mouth once daily if you feel you need improved anxiety control No Action Zyrtec 10 mg capsule 10 mg PO DAILY PRN (Reason: Allergy Symptoms) omeprazole 40 mg capsule,delayed release(DR/EC) 40 mg PO BID Qty: 180 0RF cholecalciferol (vitamin D3) [Vitamin D3] 125 mcg (5,000 unit) Tablet 125 mcg PO DAILY propranolol 10 mg tablet 10 mg PO BID Primary Care Provider: Artur Hackett Referrals: Artur Hackett MD [Primary Care Provider] - Activity Restrictions/Additional Instructions: Please take the Lexapro as directed to help control any anxiety symptoms and return to the ER should you have any further concerns Disposition Disposition: Home, Self Care Discharge Date/Time: 01/03/23 06:14
[2023-01-03 06:14] VITALS: PULSE 84; RESP 16; O2SAT 99
== END 2023-01-03 06:14 | disposition home or self-care (01) ==
PROVIDERS: Emergency Provider Emergency Medicine; PCP Family Medicine; Visit Provider Emergency Medicine
DX: F41.9 Anxiety disorder, unspecified (principal); I10 Essential (primary) hypertension; Z87.891 Personal history of nicotine dependence; Z86.79 Personal history of other diseases of the circulatory system
CPT/HCPCS: 99284

== ENCOUNTER 2024-09-01 01:07 | Emergency (ER) | payer BC, SELFPAY ==
[2024-09-01 01:08] VITALS: BP 118/73; PULSE 75; RESP 18; TEMP 36.9; O2SAT 97; BMI 36.3
[2024-09-01 01:24] LABS: Mucous, Urine 0 SEEN /hpf (<or=2+); Red Blood Cells-Urine 0 SEEN /hpf (0-5); White Blood Cells 0 SEEN /hpf (0-5)
[2024-09-01 01:26] LABS: Absolute Lymphocyte Count 3.84 X10^3/uL (0.83-4.51); Absolute Neutrophil Count 8.1 X10^3/uL (2.0-7.7); Basophil% 0.7 % (0-1); Eosinophil# 0.46 X10^3/uL; Eosinophils% 3.4 % (0-5); Hematocrit 42.9 % (37-47); Hemoglobin 14.9 g/dL (12.0-15.0); Lymphocyte # 3.84 X10^3/ul (0.83-4.51); Lymphocyte % 28.7 % (19-41); Mean Corp Hgb Conc 34.7 g/dL (32-36); Mean Corpuscular Hgb 28.8 pg (27.0-32.0); Mean Corpuscular Volume 82.8 fL (81-99); Mean Platelet Vol. 9.3 fl (6.2-12.0); Monocyte# 0.88 X10^3/uL; Monocyte% 6.6 % (0-10); NRBC Flagged by Analyzer 0 % (0-5); Neutrophil # 8.05 X10^3/uL (2.7-7.7); Neutrophil % 60.3 % (47-70); Platelet Count 358 K/mm3 (150-450); RBC Distribution Width CV 12.7 % (11.6-14.6); RBC Distribution Width SD 38.6 fl (35.1-43.9); Red Blood Count 5.18 M/mm3 (4.2-5.4); White Blood Count 13.4 K/mm3 (4.4-11.0)
[2024-09-01 01:27] LABS: Color, Urine Straw (Yellow); Glucose, Dipstick Normal (Normal); Ketone-Dipstick Negative (Negative); Leukocyte Esterase-Dipstick Negative /ul (Negative); Nitrite-Dipstick Negative (Negative); Occult Blood-Urine Negative /ul (Negative); Protein-Dipstick Negative (Negative); Urine Bilirubin Dipstick Negative (Negative); Urine Clarity Clear (Clear); Urine Urobilinogen Normal (Normal)
[2024-09-01 01:36] LABS: Internal QC Validated? YES +Cl - CLEAR BKGD; Pregnancy, Serum, hCG Quali. NEGATIVE Negative; Record Kit Lot#, Serum Preg. 869294
[2024-09-01 01:37] LABS: Bacteria 3+ /hpf (None Seen); Squamous Epithelial Cells - UA 5-10 SEEN /hpf (5-10)
[2024-09-01 01:43] LABS: AST(SGOT) 13 U/L (15-37); Alanine Aminotransfer ALT/SGPT 22 U/L (13-56); Albumin, Serum 3.9 g/dL (3.2-5.0); Alkaline Phosphatase 69 U/L (45-117); Anion Gap 5 (5-15); BUN 10 mg/dL (7-18); BUN/Creat Ratio 10.8 RATIO (10-20); Calcium,Total 9.4 mg/dL (8.5-10.1); Chloride 104 mmol/L (98-107); Creatinine, Serum 0.93 mg/dL (0.55-1.02); EST Glomerular Filtration Rate 73 mL/min (>60); Est Glom Filt Rate - Afr Amer 88 mL/min (>60); Estimated Creatinine Clearance 90.57 ml/min; Globulin 3.8 g/dL (2.2-4.2); Glucose 98 mg/dL (74-106); Protein, Total 7.7 g/dL (6.4-8.2); Sodium Level 136 mmol/L (136-145)
[2024-09-01] MEDS: Ondansetron 4 MG/2 ML Vial IV (02:36)
--- NOTE | 2024-09-01 02:38 | EX.ED.DYSGE1 ---
HPI History of Present Illness Chief Complaint: Abd Pain Informant: patient and spouse/S.O. Narrative Narrative: Patient is a 34-year-old female with a past medical history of GERD and anxiety. She states that she noticed some pain in the right upper quadrant of her abdomen that appeared sharp and intermittent beginning in the early evening. She states that she had meatloaf and a big potato for dinner and after this noticed increasing pain. She states there is nausea associate with the pain but denies vomiting. She states there is been no diarrhea or dysuria. She denies any previous abdominal surgeries. She denies any known sick contacts. She states she took [id number] medications but her symptoms have persisted and secondary to this she comes into the hospital for evaluation. [facility] Medical History Illness anxiety disorder Wears glasses Anxiety Migraine headache History of edema History of echocardiogram History of stress test Cardiology follow-up encounter Vitamin D deficiency Thyroid nodule Former smoker Hypertension SVT (supraventricular tachycardia) GERD (gastroesophageal reflux disease) Home Medications ?Medication ?Instructions ?Recorded ?Last Taken ?Type propranolol 10 mg tablet 20 mg PO BID 01/02/23 Unknown History sertraline 50 mg tablet 75 mg (1.5 x 50 mg) PO DAILY 07/03/24 Unknown Rx anxiety #90 tabs omeprazole 40 mg capsule,delayed 40 mg PO DAILY 09/01/24 Unknown History release ondansetron 4 mg disintegrating 4 mg PO TID PRN nausea and 09/01/24 Unknown Rx tablet vomiting #21 tabs oxycodone-acetaminophen 5 mg-325 1 tab PO Q6H PRN pain 3 days #12 09/01/24 Unknown Rx mg tablet (Percocet) tabs Allergy/AdvReac Type Severity Reaction Status Date / Time amoxicillin (Amoxicillin) Allergy Rash Verified 09/01/24 01:09 diltiazem (From Cardizem) AdvReac Shortness Verified 09/01/24 01:09 of breath Surgical History H/O cardiac radiofrequency ablation History of History of tonsillectomy and adenoidectomy History of umbilical hernia repair Social History Smoking Status: Former smoker alcohol intake: current substance use type: does not use what type of physical activity do you participate in: walking and other ROS ROS ED Constitutional Constitutional ED: Denies chills or fever(s) Eyes Eyes: Denies change in vision ENT ENT ED: Denies sore throat Cardiovascular Cardiovascular: Denies chest pain Respiratory/Chest Respiratory/Chest: Denies cough or dyspnea Gastrointestinal Gastrointestinal: Reports abdominal pain and nausea; Denies diarrhea or vomiting Genitourinary Genitourinary ED: Denies dysuria, hematuria or urinary frequency Musculoskeletal Musculoskeletal: Denies back pain or myalgias Integumentary Denies rash Neurologic Neurologic: Denies headache(s) Hematologic/Lymphatic Hematologic/Lymphatic: Denies easy bleeding or easy bruising EXAM Physical Exam Const Vital Signs: 09/01/24 01:08 09/01/24 02:41 Temperature 98.4 F 98.2 F Temperature Source Oral Pulse Rate 75 80 Respiratory Rate 18 16 Blood Pressure 118/73 125/75 H Blood Pressure Mean 88 91 Pulse Ox 97 100 Oxygen Delivery Method Room Air Positive well nourished, well developed and obese General Appearance ED: well developed; Negative for pallor Nutritional Appearance: obese HEENT Reports moist mucous membranes HEENT Narrative: Normocephalic atraumatic No tongue or lip swelling no oral lesions no airway edema or compromise No secondary findings in the posterior pharynx to suggest infection Eyes PERRL and EOMs intact bilaterally General Eye ED: Negative for scleral icterus Neck supple Neck Narrative: No nuchal rigidity or meningeal signs Resp normal respiratory effort and clear to auscultation bilaterally Cardio regular rate and regular rhythm Rate: other Other Details: Regular rate and rhythm without murmurs rubs or gallop GI non-distended and no masses GI Narrative: Abdomen is soft and nondistended with normal active bowel sounds. There is mild pain on palpation in the midepigastric and right upper quadrant region greatest in the right upper quadrant. However negative Valencia sign. No voluntary guarding or rigidity or pulsatile mass. Negative heel strike psoas and obturator signs Auscultation: normoactive bowel sounds Palpation: soft Back/Spine no CVA tenderness Extremity Extremity Narrative: Patient has a splint in place to the right forearm secondary to recent wrist surgery otherwise remainder the exam is normal Neuro oriented x3 and CN's II-XII intact bilaterally Sensorium / Orientation: alert Psych mental status grossly normal Skin no rashes or lesions noted General Skin Exam: Negative for jaundice or pallor MDM MDM MDM Narrative Medical decision making narrative: Patient presented to the ER with stable vitals. She reported pain that was intermittent in the right upper quadrant that started before dinner but seem to worsen afterwards and she did eat a meal that was higher in fat content with meat loaf. Differential diagnosis is for biliary colic versus acute cholecystitis versus pancreatitis versus viral stomach infection such as norovirus or rotavirus. There is also concern this is gastritis or just secondary side effect of medication as she is on Wegovy. Basic blood work was obtained and shows mild leukocytosis at 13.4. Otherwise her lipase is normal going against pancreatitis she does not have acute kidney injury or severe electrolyte abnormality and her liver enzymes are normal. Urine sample also showed no signs of obvious infection or blood to suggest kidney stone or pyelonephritis. Patient did have bacteria present but there is 5-10 skin cells without white cells or nitrates and she does not have urinary symptoms and therefore do not feel this is a true UTI. Her physical exam and history is most consistent with biliary colic. I discussed with patient a CT scan as I cannot perform an ultrasound at this time of night. The patient states she does not want a CT scan. As she does not have a fever and has a negative Valencia sign my concern for acute cholecystitis is low and feel this is most likely biliary colic. Therefore she will be prescribed symptomatic medication and be given an order form to have an outpatient gallbladder ultrasound obtained. This plan of care was discussed with the patient who is agreeable to it and at this time as vitals are stable and workup reveals no signs of obvious infection or pancreatitis or obstruction she is otherwise safe for discharge History & Record Review Discussion w/independent historian: Patient and Significant other Lab Data Attestation: I reviewed the patient's lab results. Labs: Laboratory Results - last 24 hr 09/01/24 09/01/24 01:15 01:20 WBC 13.4 H RBC 5.18 Hgb 14.9 Hct 42.9 MCV 82.8 MCH 28.8 MCHC 34.7 RDW Std Deviation 38.6 RDW Coeff of Jackie 12.7 Plt Count 358 MPV 9.3 Immature Gran % (Auto) 0.300 Neut % (Auto) 60.3 Lymph % (Auto) 28.7 Frio % (Auto) 6.6 Eos % (Auto) 3.4 Baso % (Auto) 0.7 Absolute Neuts (auto) 8.1 H Absolute Lymphs (auto) 3.84 Nucleated RBC % 0 Sodium 136 Potassium 4.0 Chloride 104 Carbon Dioxide 26.0 Anion Gap 5 BUN 10 Creatinine 0.93 Estim Creat Clear Calc 90.57 Est GFR (MDRD) Af Amer 88 Est GFR (MDRD) Non-Af 73 BUN/Creatinine Ratio 10.8 Glucose 98 Calcium 9.4 Total Bilirubin 0.30 AST 13 L ALT 22 Alkaline Phosphatase 69 Total Protein 7.7 Albumin 3.9 Globulin 3.8 Albumin/Globulin Ratio 1.0 Lipase 49 Serum , Qual NEGATIVE Urine Color Straw Urine Clarity Clear Urine pH 7.0 Ur Specific [place] 1.010 Urine Protein Negative Urine Glucose (UA) Normal Urine Ketones Negative Urine Occult Blood Negative Urine Nitrite Negative Urine Bilirubin Negative Urine Urobilinogen Normal Ur Leukocyte Esterase Negative Urine RBC 0 SEEN Urine WBC 0 SEEN Ur Squamous Epith Cells 5-10 SEEN Urine Bacteria 3+ Urine Mucus 0 SEEN Discharge Plan Triage Chief Complaint: Abd Pain ED Provider: Cuauhtemoc Powell Dx/Rx/DC Orders Clinical Impression: Abdominal pain, RUQ, GERD (gastroesophageal reflux disease), Anxiety Instructions: ED Abdominal Pain Gallstone Poss Prescriptions: New oxycodone-acetaminophen [Percocet] 5-325 mg tablet 1 tab PO Q6H PRN (Reason: pain) 3 Days Qty: 12 0RF ondansetron 4 mg tablet,disintegrating 4 mg PO TID PRN (Reason: nausea and vomiting) Qty: 21 0RF No Action sertraline 50 mg tablet 75 mg PO DAILY Qty: 90 1RF propranolol 10 mg tablet 20 mg PO BID omeprazole 40 mg capsule,delayed release(DR/EC) 40 mg PO DAILY Other Ambulatory Orders: Gallbladder (Routine) Facility: [facility] - Location: [facility] Ordered By: Dr. Cuauhtemoc Powell Primary Care Provider: Artur Hackett Referrals: Artur Hackett MD [Primary Care Provider] - Activity Restrictions/Additional Instructions: Please avoid greasy fatty foods as this will stimulate gallbladder contraction and can make your symptoms worse. Eat a bland diet of smaller meals more often throughout the day to try and prevent return of pain. Have your gallbladder ultrasound as an outpatient as directed and if you develop a fever intractable pain or have any further concerns please return for repeat evaluation Print Language: Icelandic Disposition Disposition: Home, Self Care Discharge Date/Time: 09/01/24 02:51
[2024-09-01] MEDS: oxyCODONE 5 MG Tablet PO (02:40)
[2024-09-01 02:41] VITALS: BP 125/75; PULSE 80; RESP 16; TEMP 36.8; O2SAT 100
[2024-09-01 02:58] LABS: Lipase 49 U/L (13-75)
== END 2024-09-01 02:51 | disposition home or self-care (01) ==
PROVIDERS: Emergency Provider Emergency Medicine; PCP Family Medicine; Visit Provider Emergency Medicine
DX: K21.9 Gastro-esophageal reflux disease without esophagitis (principal); F41.9 Anxiety disorder, unspecified; I10 Essential (primary) hypertension; E66.9 Obesity, unspecified; Z68.36 Body mass index [BMI] 36.0-36.9, adult; Z79.899 Other long term (current) drug therapy; Z87.891 Personal history of nicotine dependence
CPT/HCPCS: 80053; 81001; 83690; 84703; 85025; 96374; 99283; A4216; J2405

== ENCOUNTER → 2024-12-31 | Outpatient (CLI) | payer BC, SELFPAY ==
--- NOTE | 2024-12-31 09:30 | BI_ITS ---
PROCEDURE: DIAG MAMM W/CAD, BILAT; BREAST LIMITED UNILATERAL; BILAT BRST DIONNE STAND ALONE REASON FOR EXAM: 34-year-old female presents with palpable concern in the right breast. Family history of breast cancer in maternal grandmother. TECHNIQUE: Bilateral diagnostic digital breast tomosynthesis with 2D and 3D images. Computer aided detection. COMPARISON: 01/05/2016 FINDINGS: MAMMOGRAM: The breasts are heterogeneously dense which may obscure small masses. There is a triangle skin marker indicating the area of palpable concern in the lower-inner right breast. Underlying the skin marker no suspicious mammographic findings. Otherwise, there are no suspicious masses, grouped calcifications or architectural distortions in either breast. ULTRASOUND: Targeted right breast ultrasound performed of the right lower inner quadrant in the area of patient's reported palpable concern demonstrates no suspicious sonographic findings. Also, the patient reports pain in the right axilla where there are no suspicious sonographic findings. However, there is a normal appearing right axillary lymph node. BI/Bilat Brst Dionne Stand Alone IMPRESSION: There are no suspicious mammographic or sonographic findings in the area of pat ient's reported palpable concern in the right breast. Also, there are no suspicious findings in the area of patient's report ed pain in the right axilla. Clinical management is recommended for the pain. There is no mammographic evidence of malignancy in either breast. BI-RADS 2: BENIGN. RECOMMEND ANNUAL MAMMOGRAPHIC SCREENING. Follow-up code: Routine Follow-up Reading Location: [id number]
--- NOTE | 2024-12-31 09:35 | US_ITS ---
PROCEDURE: DIAG MAMM W/CAD, BILAT; BREAST LIMITED UNILATERAL; BILAT BRST DIONNE STAND ALONE REASON FOR EXAM: 34-year-old female presents with palpable concern in the right breast. Family history of breast cancer in maternal grandmother. TECHNIQUE: Bilateral diagnostic digital breast tomosynthesis with 2D and 3D images. Computer aided detection. COMPARISON: 01/05/2016 FINDINGS: MAMMOGRAM: The breasts are heterogeneously dense which may obscure small masses. There is a triangle skin marker indicating the area of palpable concern in the lower-inner right breast. Underlying the skin marker no suspicious mammographic findings. Otherwise, there are no suspicious masses, grouped calcifications or architectural distortions in either breast. ULTRASOUND: Targeted right breast ultrasound performed of the right lower inner quadrant in the area of patient's reported palpable concern demonstrates no suspicious sonographic findings. Also, the patient reports pain in the right axilla where there are no suspicious sonographic findings. However, there is a normal appearing right axillary lymph node. US/Breast Limited Unilateral IMPRESSION: There are no suspicious mammographic or sonographic findings in the area of pat ient's reported palpable concern in the right breast. Also, there are no suspicious findings in the area of patient's report ed pain in the right axilla. Clinical management is recommended for the pain. There is no mammographic evidence of malignancy in either breast. BI-RADS 2: BENIGN. RECOMMEND ANNUAL MAMMOGRAPHIC SCREENING. Follow-up code: Routine Follow-up Reading Location: [id number]
== END | disposition home or self-care (01) ==
PROVIDERS: PCP Family Medicine; Referring Provider Advanced Practice Midwife; Visit Provider Advanced Practice Midwife
DX: N63.14 Unspecified lump in the right breast, lower inner quadrant (principal); N64.4 Mastodynia
CPT/HCPCS: 76642; 77062; 77066; G0279